=== PATIENT | male | born 1975 | race Caucasian/White ===

== ENCOUNTER → 2017-02-06 | Outpatient (CLI) | payer OTHER ==
[2016-02-25 09:54] VITALS: BP 127/74
[~2017-02-06] MED LIST: MULT-246 PO; TADA5TAB PO
--- NOTE | 2017-02-06 11:45 | RAD ---
Chest, 2 views, 02/06/2017: History: Superficial chest nodule The heart size and pulmonary vascularity are normal. No pulmonary infiltrates are seen. There is no evidence of pleural fluid. Minimal spurring is present in the spine. IMPRESSION: No acute cardiopulmonary abnormality is detected.
== END | disposition home or self-care (01) ==
LOC: DXRADRC 10:40
PROVIDERS: ATTEND Nurse Practitioner Family
DX: R91.1 Solitary pulmonary nodule (principal)
CPT/HCPCS: 71020

== ENCOUNTER → 2020-02-07 | Outpatient (CLI) | payer OTHER ==
[2016-02-25 09:54] VITALS: BP 127/74
--- NOTE | 2020-02-07 15:33 | RAD ---
EXAM: Right hand, 3 views. HISTORY: Pain. COMPARISON: None. FINDINGS: 3 views of the right hand are obtained. There is no fracture, dislocation or subluxation. IMPRESSION: No acute osseous finding. Electronically signed by: Carmel Roper MD (02/07/2020 3:30 PM) [id number]
== END | disposition home or self-care (01) ==
LOC: PMG 14:06
PROVIDERS: ATTEND Family Medicine
DX: S69.91XA Unspecified injury of right wrist, hand and finger(s), initial encounter (principal); X58.XXXA Exposure to other specified factors, initial encounter; Y93.89 Activity, other specified; Y92.89 Other specified places as the place of occurrence of the external cause; Y99.8 Other external cause status
CPT/HCPCS: 73130